=== PATIENT | female | born 1975 | race Caucasian/White ===

== ENCOUNTER 2017-02-15 22:32 | Emergency (ER) | payer BC ==
[2017-02-15 23:03] VITALS: BP 124/78
[2017-02-16] MEDS ORDERED: HYDROcodone/ACETAMIN 5-325 MG* 1 TAB PO ONE (01:38)
--- NOTE | 2017-02-16 07:59 | RAD ---
HISTORY: Left ankle pain, injury COMPARISONS: None VIEWS: 3, Frontal, lateral, and oblique views of the left ankle FINDINGS: BONE DENSITY: Normal. BONES: There is no displaced fracture. JOINTS: There is no arthropathy. ALIGNMENT: There is no dislocation. SOFT TISSUES: Unremarkable. OTHER FINDINGS: None. IMPRESSION: NO ACUTE OSSEOUS INJURY. IF SYMPTOMS PERSIST, RECOMMEND REPEAT IMAGING.
--- NOTE | 2017-02-16 08:00 | RAD ---
INDICATION: Left foot injury. TECHNIQUE: 3 views of the left foot were obtained. FINDINGS: There is soft tissue swelling present along the lateral aspect of the foot. There is an oblique comminuted fracture of the distal diaphysis and metaphysis of the fifth metatarsal. The fracture fragments are overriding. There is also medial displacement of the distal fracture fragment approximately 2 cortical diameters. Joint spaces appear maintained. IMPRESSION: OBLIQUE COMMINUTED DISPLACED FRACTURE OF THE DISTAL FIFTH METATARSAL.
--- NOTE | 2017-02-27 17:42 | ED ---
Lower Extremity - HPI Summary HPI Summary: Patient presents to the ED with CC of left foot injury after missing a stair. She notes to lateral foot pain immediately after the injury. There is slight discoloration but no deformity noted. She has not taken any medications for relief. Denies radiation of pain. Denies temperature changes. NV exam intact and pulses are felt over PT and pedally. She has never injured the area before. Denies lower leg pain. - History of Current Complaint Chief Complaint: EDExtremityLower Stated Complaint: LT FOOT INJURY Time Seen by Provider: 02/16/17 01:05 Hx Obtained From: Patient Mechanism Of Injury: Fall From A Standing Position Onset of Pain: Immediate Onset/Duration: Minutes Severity Initially: Moderate Severity Currently: Moderate Pain Intensity: 0 Pain Scale Used: 0-10 Numeric Timing: Constant Location: Is Discrete @ - left lateral foot Associated Signs And Symptoms: Positive: Swelling, Bruising Aggravating Factor(s): Standing, Ambulation Alleviating Factor(s): Rest Able to Bear Weight: Yes - Risk Factors Gout Risk Factors: Negative DVT Risk Factors: Negative Septic Arthritis Risk Factor: Negative - Allergies/Home Medications Allergies/Adverse Reactions: Allergies Allergy/AdvReac Type Severity Reaction Status Date / Time No Known Allergies Allergy Verified 02/15/17 23:00 PMH/Surg Hx/FS Hx/Imm Hx Previously Healthy: Yes - Immunization History Hx Pertussis Vaccination: No Immunizations Up to Date: Unable to Obtain/Confirm Infectious Disease History: No Infectious Disease History: Denies: Traveled Outside the [place] in Last 30 Days - Social History Occupation: Employed Part-time Lives: With Family Alcohol Use: Occasionally Hx Substance Use: No Substance Use Type: Reports: None Hx Tobacco Use: No Smoking Status (MU): Never Smoked Tobacco Review of Systems Constitutional: Negative Eyes: Negative Cardiovascular: Negative Respiratory: Negative Positive: no symptoms reported, see HPI Positive: Arthralgia - right lateral foot pain Positive: Other - ecchymosis over area Neurological: Negative Psychological: Normal All Other Systems Reviewed And Are Negative: Yes Physical Exam Triage Information Reviewed: Yes Vital Signs On Initial Exam: Initial Vitals Temp Pulse Resp BP Pulse Ox 97.3 F 74 16 124/78 97 02/15/17 23:01 02/15/17 23:01 02/15/17 23:01 02/15/17 23:01 02/15/17 23:01 Vital Signs Reviewed: Yes Appearance: Positive: Well-Appearing, Well-Nourished Skin: Positive: Warm, Skin Color Reflects Adequate Perfusion Head/Face: Positive: Normal Head/Face Inspection Eyes: Positive: Normal, DANNI Neck: Positive: Supple, No Lymphadenopathy Respiratory/Lung Sounds: Positive: Clear to Auscultation, Breath Sounds Present Cardiovascular: Positive: Normal, RRR, Pulses are Symmetrical in both Upper and Lower Extremities Musculoskeletal: Positive: Pain @ - right lateral foot pain Neurological: Positive: Speech Normal Psychiatric: Positive: Normal, Affect/Mood Appropriate AVPU Assessment: Alert Diagnostics - Vital Signs Vital Signs Temp Pulse Resp BP Pulse Ox 02/15/17 23:01 97.3 F 74 16 124/78 97 - Laboratory Lab Statement: Any lab studies that have been ordered have been reviewed, and results considered in the medical decision making process. Lower Extremity Course/Dx - Course Course Of Treatment: Patient sent to xray. Xray + for oblique comminuted displaced fx of the distal 5th metatarsal. ibuprofen encouraged. cam boot given. patient ok with discharge and will follow up with ortho in 3-5 days. - Diagnoses Differential Diagnosis/HQI/PQRI: Positive: Contusion, Fracture (Closed), Fracture (Open) Provider Diagnoses: Metatarsal fracture Discharge - Discharge Plan Condition: Stable Disposition: HOME Prescriptions: Oxycodone/ASA 5/325 (NF) [Percodan 5/325 (NF)] 1 tab PO Q6H PRN #16 tab MDD 4 PRN Reason: Pain Patient Education Materials: Foot Fracture in Adults (ED) Referrals: Oscra Rodney MD [Medical Doctor] - No Primary Care Phys,NOPCP [Primary Care Provider] - Additional Instructions: Ice, elevate and continue with cam boot DO NOT BEAR ANY WEIGHT ON THE FOOT UNTIL FOLLOW UP WITH ORTHO Ibuprofen 600mg three times daily For breakthrough pain not well controlled with ibuprofen, you may take the Percoset.
== END 2017-02-16 02:04 | disposition home or self-care (01) ==
LOC: ED 22:32
DX: S92.302A Fracture of unspecified metatarsal bone(s), left foot, initial encounter for closed fracture (principal); W10.9XXA Fall (on) (from) unspecified stairs and steps, initial encounter; Y93.9 Activity, unspecified; Y92.9 Unspecified place or not applicable; Y99.9 Unspecified external cause status
CPT/HCPCS: 99282